=== PATIENT | female | born 1960 | race African-American/Black ===

== ENCOUNTER 2020-04-15 00:56 | Emergency (ER) | payer MEDICAID ==
[~2020-04-15] VITALS: Ht 165.1 cm; Wt 70.8 kg
[2020-04-15] MEDS ORDERED: KETOROLAC TROMETH 60MG/2ML VIAL IM ONE (03:30)
[2020-04-15] MEDS ORDERED: methylPREDNISolone SOD SUCC 125 MG/2 ML VL IM ONE (03:30)
[2020-04-15 04:32] VITALS: BP 138/67
== END 2020-04-15 05:41 | disposition home or self-care (01) ==
LOC: ER 00:56
DX: M26.651 Arthropathy of right temporomandibular joint (principal); M19.09 Primary osteoarthritis, other specified site; J45.909 Unspecified asthma, uncomplicated
CPT/HCPCS: 70450; 70486; 96372; 99285; J1885; J2930

== ENCOUNTER 2020-07-13 11:41 | Emergency (ER) | payer MEDICAID ==
[~2020-07-13] VITALS: Ht 172.7 cm; Wt 102.1 kg
[2020-07-13 11:43] VITALS: BP 119/70
== END 2020-07-13 13:29 | disposition home or self-care (01) ==
LOC: ER 11:41
DX: H92.01 Otalgia, right ear (principal); J45.909 Unspecified asthma, uncomplicated; Z88.6 Allergy status to analgesic agent

== ENCOUNTER 2020-09-16 17:34 | Emergency (ER) | payer MEDICAID ==
[~2020-09-16] VITALS: Ht 162.6 cm; Wt 63.5 kg
[2020-09-16 18:24] VITALS: BP 119/68
[2020-09-16] MEDS ORDERED: KETOROLAC TROMETH 60MG/2ML VIAL IM ONE (19:15)
== END 2020-09-16 19:31 | disposition home or self-care (01) ==
LOC: ER 17:34
DX: R51.9 Headache, unspecified (principal); R20.2 Paresthesia of skin; H53.149 Visual discomfort, unspecified; J45.909 Unspecified asthma, uncomplicated
CPT/HCPCS: 70450; 96372; 99284; J1885

== ENCOUNTER 2021-12-12 15:30 | Emergency (ER) | payer MEDICAID ==
[~2021-12-12] VITALS: Ht 162.6 cm; Wt 69.5 kg
[2021-12-12 17:33] VITALS: BP 120/68
[2021-12-12] MEDS: KETOROLAC TROMETH 60MG/2ML VIAL IM ONE (17:55)
[2021-12-12] MEDS ORDERED: PRED20TA2 PO (18:16)
[2021-12-12] MEDS ORDERED: TRAM-297 PO (18:16)
== END 2021-12-12 18:23 | disposition home or self-care (01) ==
LOC: ER 15:30
DX: S39.012A Strain of muscle, fascia and tendon of lower back, initial encounter (principal); M41.9 Scoliosis, unspecified; R94.31 Abnormal electrocardiogram [ECG] [EKG]; M62.838 Other muscle spasm; X58.XXXA Exposure to other specified factors, initial encounter; Y93.89 Activity, other specified; Y92.89 Other specified places as the place of occurrence of the external cause; Y99.8 Other external cause status
CPT/HCPCS: 72100; 93005; 96372; 99283; J1885

== ENCOUNTER 2023-12-12 11:06 | Emergency (ER) | payer MEDICAID ==
[~2023-12-12] VITALS: Ht 162.6 cm; Wt 78.1 kg
[~2023-12-12 11:06] MED LIST: PRED20TA2 PO; TRAM-297 PO
[2023-12-12 11:56] VITALS: BP 113/71; PULSE 73; RESP 18; TEMP 97.6; O2SAT 99
[2023-12-12] MEDS: methylPREDNISolone SOD SUCC 125 MG/2 ML VL IM ONE (12:20)
[2023-12-12] MEDS ORDERED: HYDR-3682 PO (12:36)
[2023-12-12] MEDS ORDERED: FLUO0.054 TOP (12:36)
== END 2023-12-12 12:40 | disposition home or self-care (01) ==
LOC: ER 11:06
DX: L20.9 Atopic dermatitis, unspecified (principal); J45.909 Unspecified asthma, uncomplicated
CPT/HCPCS: 96372; 99283; J2919